=== PATIENT | female | born 1975 ===

== ENCOUNTER 2017-05-03 08:37 | Day surgery (SDC) | payer MEDICAID ==
[2017-04-28 09:46] VITALS: BMI 30.1
[2017-05-03] MEDS ORDERED: ceFAZolin 1 gm FROZEN Premix 2 GM/100 ML ML IVPB ONE (10:40)
[2017-05-03] MEDS ORDERED: Lidocaine 1% Inj (20ml) ONE (10:40)
[2017-05-03] MEDS ORDERED: Lactated Ringer's 1,000 ML IV ONE ×2 (10:57→11:27)
[2017-05-03] MEDS ORDERED: Bupivacaine HCl 0.25% PF (10 ml) Inj ONE (10:57)
[2017-05-03] MEDS ORDERED: Midazolam 2 MG/2 ML VIAL ONE (10:59)
[2017-05-03] MEDS ORDERED: Propofol 10 mg/ml Inj (20 ML) ONE (10:59)
[2017-05-03] MEDS ORDERED: HYDROmorphone 0.5 mg/0.5 ml ISec IVP PRN (11:16)
[2017-05-03] MEDS ORDERED: Oxycodone/Acetaminophen 5/325 mg Tab PO PRN (11:38)
[2017-05-03 12:36] VITALS: PULSE 60
[2017-05-03 12:59] VITALS: BP 89/67; RESP 18; TEMP 97; O2SAT 100
--- NOTE | 2017-05-03 15:19 | OP ---
PROCEDURE DATE: 05/03/2017 PREOPERATIVE DIAGNOSIS: Soft tissue tumor of the left calf. POSTOPERATIVE DIAGNOSIS: Soft tissue tumor of the left calf. PROCEDURE PERFORMED: Wide and deep incision soft tissue tumor, left calf with adjacent tissue transfer closure. SURGEON: Dr. Noland. TYPE OF ANESTHESIA: Local sedation. ESTIMATED BLOOD LOSS: 30 mL. POSTOPERATIVE CONDITION: Stable. DESCRIPTION OF PROCEDURE: The patient was taken to the operating room, placed in the prone sedation, IV sedation was administered and the left calf was prepped and draped. Local anesthesia was infiltrated. A generous elliptical incision was made surrounding the mass. It was dissected into the fascia completely removed. Bleeding was controlled using Bovie. Larger blood vessels were repaired. Wound was irrigated with saline. Generous tissue flaps were raised using the Bovie and a greater than 30 sq cm adjacent tissue transfer closure was performed using multiple layers of Monocryl, subcuticular Monocryl and glue. The patient tolerated the procedure well and returned to the recovery room in stable condition. Skinny Noland MD
== END 2017-05-03 14:09 | disposition home or self-care (01) ==
LOC: C.SDS 08:37
PROVIDERS: ATTEND Surgery
DX: D48.7 Neoplasm of uncertain behavior of other specified sites (principal)
CPT/HCPCS: 11403; 12032; 88305; J0690; J2250; J2704; J3010; J7120